=== PATIENT | male | born 1960 | race Caucasian/White ===

== ENCOUNTER 2022-03-15 09:41 | Emergency (ER) | payer OTHER ==
[~2022-03-15] VITALS: Ht 190.5 cm; Wt 90.4 kg
--- NOTE | 2022-03-15 09:49 | NUR ---
Luly orellana in [facility] - 03/15/22 at 0950 by [email or web address] AMBULATED TO BATHROOM WITH STEADY GAIT
[2022-03-15 09:50] VITALS: BP 157/90
--- NOTE | 2022-03-15 10:54 | NUR ---
61 Y/O MALE BIB SELF C/O BILATERAL BELOW THE KNEE EDEMA +4 X1 WEEK. DENIES ANY CP, SOB, ABD PAIN. DENIES ANY CARDIAC HISTORY, IN BED, CHANGED INTO A GOWN AND ON THE MONITOR NKA PMH: HTN, DM
--- NOTE | 2022-03-15 11:19 | NUR ---
DR ARREDONDO AT BEDSIDE
--- NOTE | 2022-03-15 11:34 | NUR ---
X-Ray at bedside.
--- NOTE | 2022-03-15 12:06 | NUR ---
Ultrasound at bedside FINISHED
[2022-03-15 12:45] LABS: BASOPHILS # (AUTO) 0.1 K/uL (0.00-0.22); BASOPHILS % (AUTO) 1.2 % (0.0-2.0); EOSINOPHILS # (AUTO) 0.2 K/uL (0-0.4); EOSINOPHILS % (AUTO) 3.8 % (0.0-4.0); HEMATOCRIT 37.8 % (36-52); HEMOGLOBIN 12.7 g/dL (12.0-18.0); LYMPHOCYTES # (AUTO) 1.6 K/uL (2.0-11.5); LYMPHOCYTES % (AUTO) 33.7 % (20.5-51.1); MEAN CORPUSCULAR HEMOGLOBIN 33 pg (27-31); MEAN CORPUSCULAR HGB CONC 34 g/dL (33-37); MEAN CORPUSCULAR VOLUME 98.1 fL (80-94); MONOCYTES # (AUTO) 0.6 K/uL (0.8-1.0); MONOCYTES % (AUTO) 13.5 % (1.7-9.3); NEUTROPHILS # (AUTO) 2.2 K/uL (1.8-7.7); NEUTROPHILS % (AUTO) 47.8 % (42.2-75.2); PLATELET COUNT (AUTO) 253 K/uL (140-450); RED BLOOD CELL COUNT(AUTO) 3.85 MIL/uL (4.20-6.10); RED CELL DISTRIBUTION WIDTH 13.3 % (11.6-13.7); WHITE BLOOD COUNT (AUTO) 4.7 K/uL (4.8-10.8)
[2022-03-15 12:58] VITALS: BP 164/96
[2022-03-15 13:15] LABS: ALBUMIN 3.2 g/dL (3.4-5.0); ANION GAP 11.1 (8-16); CARBON DIOXIDE 29.9 mmol/L (21-32); TOTAL BILIRUBIN 0.3 mg/dL (0.0-1.0)
[2022-03-15] MEDS ORDERED: FURO-572 PO (14:18)
--- NOTE | 2022-03-15 14:43 | NUR ---
Patient discharged with v/s stable. Written and verbal after care instructions ABOUT PERIPHERAL EDEMA given and explained. Patient alert, oriented and verbalized understanding of instructions. Ambulatory with steady gait. All questions addressed prior to discharge. ID band removed. Patient advised to follow up with PMD. Rx of LASIX given. Patient educated on indication of medication including possible reaction and side effects. Opportunity to ask questions provided and answered.
== END 2022-03-15 14:43 | disposition home or self-care (01) ==
LOC: MED 09:41 → EDBD 09:41 → MED 14:43
DX: R60.9 Edema, unspecified (principal); E11.9 Type 2 diabetes mellitus without complications; I10 Essential (primary) hypertension; Z79.899 Other long term (current) drug therapy
CPT/HCPCS: 36415; 71045; 80053; 82948; 83880; 84484; 85025; 93970; 99285; Q0092